=== PATIENT | male | born 1935 | race Caucasian/White ===

== ENCOUNTER 2021-10-09 08:20 | Day surgery (SDC) | payer MEDICARE ==
[~2021-10-09] VITALS: Ht 185.4 cm; Wt 72.7 kg
[~2021-10-09 08:20] MED LIST: ASPIRIN 81 MG CHEWABLE TABLET ONE; DIAZEPAM 5 MG TABLET ONE; DiphenhydrAMINE HCL 50 MG CAPSULE ONE; SODIUM CHLORIDE 0.9% 1,000 ML ONE
[2021-10-09] MEDS ORDERED: SODIUM CHLORIDE 0.9% 1,000 ML IV ONE (08:30)
[2021-10-09] MEDS ORDERED: CIPR-278 PO (09:58)
[2021-10-09] MEDS ORDERED: ATOR20TA86 PO (09:58)
[2021-10-09] MEDS ORDERED: MELA5TAB40 PO (09:58)
[2021-10-09] MEDS ORDERED: ASPI-1450 PO (09:58)
[2021-10-09] MEDS ORDERED: ACET-3385 PO (09:58)
[2021-10-09] MEDS ORDERED: OMEP10 PO (09:58)
[2021-10-09] MEDS ORDERED: DiphenhydrAMINE HCL 50 MG CAPSULE PO ONE (10:30)
[2021-10-09] MEDS ORDERED: DIAZEPAM 5 MG TABLET PO ONE (10:30)
[2021-10-09] MEDS ORDERED: ASPIRIN 81 MG CHEWABLE TABLET PO ONE (10:30)
[2021-10-09] MEDS ORDERED: IOHEXOL 300 MG/ML 100 ML VIAL ONE (11:35)
[2021-10-09] MEDS ORDERED: HEPARIN SODIUM 1000 UNITS/NS 1,000 ML ONE (11:35)
[2021-10-09] MEDS ORDERED: LIDOCAINE/PF 1% 30 ML VIAL ONE (11:35)
[2021-10-09] MEDS ORDERED: SODIUM BICARBONATE 50 MEQ/50 ML VIAL ONE (11:35)
[2021-10-09] MEDS ORDERED: IOHEXOL 300 MG/ML 150 ML VIAL ONE (11:35)
[2021-10-09] MEDS ORDERED: IOHEXOL 300 MG/ML 50 ML VIAL ONE (11:35)
[2021-10-09 11:49] VITALS: BP 112/62
[2021-10-09] MEDS ORDERED: MIDAZOLAM HCL 2 MG/2 ML VIAL ONE (12:02)
[2021-10-09] MEDS ORDERED: FentaNYL CITRATE PF 100 MCG/2 ML VIAL ONE (12:02)
[2021-10-09] MEDS ORDERED: HEPARIN SODIUM 1000 UNITS/NS 1,000 ML IARTER ONE (12:15)
[2021-10-09] MEDS ORDERED: FentaNYL CITRATE PF 100 MCG/2 ML VIAL IVP ONE ×2 (12:15→13:00)
[2021-10-09] MEDS ORDERED: MIDAZOLAM HCL 2 MG/2 ML VIAL IVP ONE (12:15)
[2021-10-09] MEDS ORDERED: LIDOCAINE 1% 30 ML/SOD BICARB 8.4% 4 ML SQ ONE (12:15)
[2021-10-09] MEDS ORDERED: IOHEXOL 300 MG/ML 150 ML VIAL IARTER ONE (12:15)
[2021-10-09] MEDS ORDERED: HEPARIN SODIUM,PORCINE 5,000 UNITS/ML VIAL IVP ONE (12:45)
[2021-10-09 13:09] VITALS: BP 126/70
== END 2021-10-09 17:20 | disposition home or self-care (01) ==
LOC: CATHLAB 08:20
PROVIDERS: ATTEND Internal Medicine Interventional Cardiology
DX: I25.10 Atherosclerotic heart disease of native coronary artery without angina pectoris (principal); I35.0 Nonrheumatic aortic (valve) stenosis; R94.39 Abnormal result of other cardiovascular function study; Z86.73 Personal history of transient ischemic attack (TIA), and cerebral infarction without residual deficits; Z79.899 Other long term (current) drug therapy; Z98.890 Other specified postprocedural states
CPT/HCPCS: 93455; 99152; 99153; C1760; J1644; J2250; J3010; J3490 ×2; J7030; Q9967 ×2; 93459